=== PATIENT | female | born 1990 | race African-American/Black ===

== ENCOUNTER → 2018-09-13 | Outpatient (CLI) | payer BC ==
[~2018-09-13] VITALS: Ht 157.5 cm; Wt 92.5 kg
[~2018-09-13] MED LIST: ONDANSETRON PF 4 MG/2 ML VIAL. IV PRN; ONDANSETRON PF 4 MG/2 ML VIAL. ONE
[2018-09-13 14:28] LABS: THYROID STIM HORMONE (TSH) 0.611 uIU/mL (0.358-3.740)
[2018-09-13 14:53] LABS: FREE T4 1.28 ng/dL (0.76-1.46)
[2018-09-15] MEDS: IV RINGERS SOLUTION,LACTATED 1,000 ML IV ONE ×2 (12:30→13:30)
== END | disposition home or self-care (01) ==
LOC: OPINF 11:20
PROVIDERS: ATTEND Obstetrics & Gynecology
DX: R11.2 Nausea with vomiting, unspecified (principal)
CPT/HCPCS: 36592; 84439; 84443; 96361; 96374; J2405; J7120; 96360